=== PATIENT | male | born 1980 | race Caucasian/White ===

== ENCOUNTER 2021-09-15 21:21 | Observation (INO) ==
[2021-09-15 22:28] LABS: Basophils % 0.6 %; Eosinophils # 0.4 K/mcL (0.0-0.6); Eosinophils % 6.4 %; Hematocrit 43.1 % (37.5-50.1); Hemoglobin 13.7 g/dL (12.9-16.9); Immature Granulocytes % 0.2 % (0-4); Lymphocytes # 1.5 K/mcL (0.6-4.6); Lymphocytes % 27.7 %; Mean Corpuscular HGB Conc 31.8 g/dL (31.6-35.5); Mean Corpuscular Hemoglobin 28.1 pg (28.0-33.3); Mean Corpuscular Volume 88.3 fL (83.0-100.0); Mean Platelet Volume 9.6 fL (9.4-12.4); Monocytes # 0.6 K/mcL (0.0-1.3); Monocytes % 11.2 %; Neutrophils # 2.9 K/mcL (1.6-8.9); Platelet Count 214 K/mcL (140-400); Red Blood Count 4.88 M/mcL (4.19-5.50); Segmented Neutrophils % 53.9 %; White Blood Count 5.5 K/mcL (4.3-11.1)
[2021-09-15 22:36] LABS: Acetaminophen < 10 mcg/mL (10-20); BUN/Creatinine Ratio 25 (6-26); Bilirubin,Urine Negative (Negative); Blood Urea Nitrogen 23 mg/dL (6-20); Blood,Urine Negative (Negative); Calcium 9.5 mg/dL (8.6-10.3); Carbon Dioxide 31 mEq/L (23-29); Chloride 100 mEq/L (98-107); Clarity,Urine Clear (Clear); Color,Urine Colorless (Yellow); Ethanol < 10 mg/dL (Less than 10); Glucose 91 mg/dL (70-105); Glucose,Urine (UA) Normal (Normal); Ketones,Urine Negative (Negative); Leukocyte Esterase,Urine Negative (Negative); Nitrite,Urine Negative (Negative); Osmolality,Calculated 287 (280-300); PH,Urine 6.5 pH Units (5.0-8.0); Potassium 4.1 mEq/L (3.5-5.1); Protein,Urine Negative (Neg-Trace); Salicylate < 2.5 mg/dL (15.0-30.0); Sodium 137 mEq/L (136-145); Urobilinogen,Urine Normal (Normal); eGFR For African Americans > 60 (> 60); eGFR For Non-African Americans > 60 (> 60)
[2021-09-15 22:37] LABS: Amphetamine Screen,Urine Negative ng/mL (Cutoff=1000); Barbiturate Screen,Urine Negative ng/mL (Cutoff=200); Benzodiazepines Screen,Urine Negative ng/mL (Cutoff=200); Cannabinoid Screen,Urine Negative ng/mL (Cutoff = 50); Cocaine Screen,Urine Negative ng/mL (Cutoff= 300); Opiate Screen,Urine Negative ng/mL (Cutoff=300); Phencyclidine Screen,Urine Negative ng/mL (Cutoff=25)
[2021-09-16 01:22] LABS: Influenza A PCR Negative (Negative); Influenza B PCR Negative (Negative); Resp. Syncytial Virus PCR Negative (Negative)
[2021-09-16 01:23] LABS: SARS-CoV-2 by PCR (In House) Negative (Negative)
[2021-09-16] MEDS ORDERED: hydrOXYzine pamoate 25 MG CAPSULE PO PRN (02:13)
[2021-09-16] MEDS ORDERED: *HR* LORazepam 2 MG/ML VIAL IM PRN (02:13)
[2021-09-16] MEDS ORDERED: traZODone 50 MG TABLET PO PRN (02:13)
[2021-09-16] MEDS ORDERED: Acetaminophen 325 MG TABLET PO PRN (02:13)
[2021-09-16] MEDS ORDERED: Haloperidol Lactate 5 MG/ML VIAL IM PRN (02:13)
[2021-09-16] MEDS ORDERED: *HR* LORazepam 1 MG TABLET PO PRN (02:13)
[2021-09-16] MEDS ORDERED: haloperidoL 5 MG TABLET PO PRN (02:13)
[2021-09-16] MEDS ORDERED: MOM Conc 10 ML UD.LIQ PO PRN (11:13)
[2021-09-16] MEDS ORDERED: Mag Hydrox/Al Hydrox/Simeth 30 ML UDC PO PRN (11:13)
[2021-09-16] MEDS: BuPROPion XL (24 HR) 150 MG TABLET PO SCH (13:17)
[2021-09-17] MEDS: BuPROPion XL (24 HR) 150 MG TABLET PO SCH (08:29)
[2021-09-17 10:15] VITALS: BP 138/87; PULSE 70; TEMP 97.6; O2SAT 98
== END 2021-09-17 12:35 | disposition home or self-care (01) ==
LOC: EMEROOARM 21:21 → 1ANU 09-16 01:39 → INTOOBSV 09-16 01:39 → 1ANU 09-16 02:57
PROVIDERS: ADMIT Psychiatry & Neurology Psychiatry; ATTEND Psychiatry & Neurology Psychiatry